=== PATIENT | female | born 1955 ===

== ENCOUNTER 2018-09-11 06:31 | Day surgery (SDC) | payer OTHER ==
[~2018-09-11 06:31] MED LIST: LEVO-T25 MCG PO; PROTONIX40 MG PO; TAMS0.4C PO; ZANTAC300 MG PO
== END 2018-09-11 10:50 | disposition home or self-care (01) ==
LOC: AMB-ENDOS 06:31
DX: K57.32 Diverticulitis of large intestine without perforation or abscess without bleeding (principal); K64.1 Second degree hemorrhoids